=== PATIENT | female | born 1985 | race Caucasian/White ===

== ENCOUNTER 2024-05-12 13:37 | Emergency (ER) | payer BC, SELFPAY ==
--- NOTE | 2024-05-12 13:53 | ED_ITS ---
HPI - Eye Problem General Chief complaint: Eye Problems Stated complaint: left eye bruised bleeding Time Seen by Provider: 05/12/24 14:17 Source: patient, RN notes reviewed and old records reviewed Mode of arrival: ambulatory Limitations: no limitations History of Present Illness HPI Narrative: 31-year-old female presents to the [facility] with concerns of bruising and a subconjunctival hemorrhaging of the left. Denies nausea vomiting. Denies any blurry vision change in vision. Denies headache. Has bruising to the side of the left eye. Sub conjunctival hemorrhage noted. Patient states that she got hit in the side of the head with a gate latch. Related Data Home Medications ?Medication ?Instructions ?Recorded ?Confirmed ?Last Taken ?Type citalopram 20 mg tablet 20 mg PO DAILY 05/12/24 05/12/24 Unknown History ferrous sulfate 325 mg (65 mg 325 mg PO WEEKLY 05/12/24 05/12/24 Unknown History iron) tablet (FeroSul) Allergies Allergy/AdvReac Type Severity Reaction Status Date / Time No Known Allergies Allergy Verified 05/12/24 14:27 Review of Systems 2 Review of Systems: All systems reviewed & are unremarkable except as noted in HPI and below Constitutional: Constitutional: Reports no additional constitutional complaints Eyes: Eyes: Reports as per HPI ENT: Reports system reviewed and no additional complaints, except as documented Cardiovascular: Cardiovascular: Reports no additional cardiovascular complaints, Denies chest pain and Denies dyspnea Respiratory: Respiratory: Reports no additional respiratory complaints, Denies chest congestion, Denies cough and Denies dyspnea Musculoskeletal: Musculoskeletal: Reports no additional musculoskeletal complaints Integumentary/Breasts: Skin/Breast: Reports system reviewed and no additional complaints, except as docu PMFSH Comments At the time of my signature, I reviewed and agree with the nursing past medical, surgical, social, and family history. There is no relevant family history pertinent to the patient complaint. Exam 2 Const: General: cooperative, healthy appearing, comfortable, no acute distress, well developed, alert and well nourished Nutritional Appearance: w ell nourished Orientation/consciousness: patient oriented x3 Limitations: no limitations HENMT: Head: normal to inspection Head images: 1. Bruising without swelling noted. No periorbital tenderness Ears: hearing grossly normal bilaterally, external ears normal, TM's normal bilaterally, EAC's normal, mastoids normal and no periauricular adenopathy Eyes: General: appearance normal, both eyes and all related structures V isual Pope: normal visual pope by confrontation Alignment and Position: a lignment normal Eyelids: eyelids normal Conjunctivae: conjunctivae normal Sclera: scleral abnormality left hemorrhage Neck: Neck: normal visual inspection, full ROM, no lymphadenopathy and no meningeal signs Chest: Chest palpation & inspection: normal inspection of the chest Resp: Effort & Inspection: normal respiratory effort and able to speak in complete sentences Auscultation: clear to auscultation bilaterally, no crackles, no rales, no rhonchi and no wheezes Cardio: Rate: regular rate Skin: General skin exam: normal color and no rashes or lesions noted Neuro: General: patient oriented x3, gait normal, moves all extremities and no meningeal signs Cognition (Neuro): normal cognition Speech: normal speech Gait exam (Neuro): Normal gait present Extrem: General: normal to inspection, full ROM, capillary refill normal and normal gait Psych: Appearance: grossly normal and well kempt Mental Status: mental status grossly normal Speech and movement: Normal speech and movement present and Clear speech present Affect: normal affect Attitude: cooperative Course Course Level of Care: Express Care Visit Vital Signs Vital signs: Vital Signs Temperature 97.7 F 05/12/24 13:56 Pulse Rate 148 H 05/12/24 13:56 Respiratory Rate 16 05/12/24 13:56 Blood Pressure 121/76 05/12/24 13:56 Pulse Oximetry 99 05/12/24 13:56 Oxygen Delivery Room Air 05/12/24 13:56 Temperature 97.7 F 05/12/24 13:56 Pulse Rate 66 05/12/24 14:25 Respiratory Rate 16 05/12/24 13:56 Blood Pressure 121/76 05/12/24 13:56 Pulse Oximetry 99 05/12/24 13:56 Oxygen Delivery Room Air 05/12/24 13:56 Reviewed MDM - Eye Problem MDM Narrative Medical decision making narrative: Patient is sitting comfortably in exam room. Nontoxic, vitals stable. Patient presents with bruising, subconjunctival hemorrhage. Fluorescein use, no acute findings, no foreign bodies noted. Patient denies any change in vision, blurry vision. No pain of periorbital area during palpation. Patient appropriate for outpatient treatment of contusion and subconjunctival hemorrhage with strict signs and symptoms of proceed to the emergency room and to follow-up with eye doctor. Patient and male friend agreed Discharge instructions reviewed with patient, as well as provided in writing per nursing staff. The instructions also include specific and strict return/GO TO THE ER as well as f/u information. All questions have been answered, and the patient deny any further questions with discharge and discharge plan. Some parts of this dictation were generated by voice recognition software and may contain typographical and/or grammatical inaccuracies. Differential Diagnosis Differential diagnosis: Likely corneal abrasion, conjunctivitis, hyphema, periorbital cellulitis and ruptured globe Critical Care Time Critical Care Time Critical Care Time: No Discharge Plan Discharge Clinical Impression: Subconjunctival hemorrhage, Contusion of face Patient Disposition: Home, Self-Care Condition: Stable Instructions: Antibiotic Form, Ecchymosis (ED) Additional Instructions: Apply ice every 2-3 hours for 15-20 minutes. Take Tylenol as needed for pain per package instructions For new or worsening symptoms please go directly to the emergency room You should follow-up with an eye doctor within the next 72 hours [facility]: [place]- [phone] [facility] [phone] [facility] [phone] [place]: [facility] [phone] or [phone] [facility] [phone] [facility] [phone] [facility] [phone] [facility]- [phone] Patient Language: Bel[place]ian Prescriptions: No Action citalopram 20 mg tablet 20 mg PO DAILY ferrous sulfate [FeroSul] 325 mg (65 mg iron) tablet 325 mg PO WEEKLY Follow-up/Referrals: PHYSICIAN NOT ON STAFF,NONSTAFF [Primary Care Provider] - Time of Disposition: 14:39
[2024-05-12 13:56] VITALS: BP 121/76; PULSE 148; RESP 16; TEMP 36.5; O2SAT 99
[2024-05-12 14:25] VITALS: PULSE 66
[2024-05-12] MEDS: TETRACAINE HCL 0.5% OPHTH SOLN 4 ML BTL 1 DROP LEFT EYE (14:29)
[2024-05-12] MEDS: FLUORESCEIN SOD 1 MG/STRIP EACH EYE (14:29)
== END 2024-05-12 14:44 | disposition home or self-care (01) ==
PROVIDERS: Emergency Provider Nurse Practitioner
DX: H11.32 Conjunctival hemorrhage, left eye (principal); S00.83XA Contusion of other part of head, initial encounter; W22.8XXA Striking against or struck by other objects, initial encounter; D64.9 Anemia, unspecified; F41.9 Anxiety disorder, unspecified
CPT/HCPCS: 99203; G0463